=== PATIENT | male | born 1955 | race African-American/Black ===

== ENCOUNTER 2019-04-15 19:00 | Emergency (ER) | payer OTHER ==
[~2019-04-15] VITALS: Ht 195.6 cm; Wt 77.1 kg
[2019-04-15] MEDS ORDERED: PLAVIX 75 MG TA75 M1 PO (19:24)
[2019-04-15] MEDS ORDERED: ASPIR 8181 MG PO (19:24)
[2019-04-15] MEDS ORDERED: COREG6.25 MG PO (19:25)
[2019-04-15] MEDS ORDERED: KEPPRA750 MG PO (19:26)
[2019-04-15] MEDS ORDERED: KEFLEX500 M1 PO (20:03)
[2019-04-15 20:25] VITALS: BP 140/99
== END 2019-04-15 20:28 | disposition home or self-care (01) ==
LOC: ER 19:00
DX: R04.0 Epistaxis (principal); I10 Essential (primary) hypertension; Z87.891 Personal history of nicotine dependence